=== PATIENT | male | born 1990 | race African-American/Black ===

== ENCOUNTER 2016-12-08 13:29 | Emergency (ER) ==
[2016-12-08 13:48] VITALS: BP 151/97
--- NOTE | 2016-12-08 14:14 | PROVIDER DOCUMENTATION ---
HPI-General Adult - General Source: patient - History of Present Illness -Gen Adult Nature of Presenting Problems: patient is a 26 y/o M that presents to the ER requesting Predisone for his MS. pt has been off his steroids for a few months. He reports going to [facility] a few times to get Predisone. He has no neurological f/u. Denies any symptoms. Location of Pain/Injury: reports: none Pain Radiation: reports: no radiation Quality of Pain: reports: none Severity: reports: mild Onset/Duration: reports: unsure Timing: reports: still present Context/Activities at Onset: reports: other (out of meds) Modifying Factors: improves with: nothing Associated Symptoms: reports: denies symptoms Similar Symptoms Previously?: Yes Recently seen or treated by another doctor?: No <Kingston Lion - Last Filed: 12/08/16 14:19> <Silas Black - Last Filed: 12/08/16 14:57> - General Chief Complaint: Request RX Stated Complaint: REQUEST RX Time Seen by Provider: 12/08/16 14:02 Allergies/Adverse Reactions: Patient Allergies Allergy/AdvReac Type Severity Reaction Status Date / Time No Known Allergies Allergy Verified 09/07/16 08:26 Home Medications: Prednisone 20 mg PO DAILY 12/08/16 Review of Systems - Adult - REVIEW OF SYSTEMS - ADULT Constitutional: denies: chills, fever Eyes: reports: no symptoms reported Ears, Nose, Mouth & Throat: denies: sinus problem, throat pain Cardiovascular: reports: no symptoms reported Respiratory: reports: no symptoms reported Gastrointestinal: reports: no symptoms reported Genitourinary: reports: no symptoms reported Musculoskeletal: reports: no symptoms reported Integumentary: reports: no symptoms reported Neurological: reports: no symptoms reported Psychiatric: reports: no symptoms reported Endocrine: reports: no symptoms reported Hematologic/Lymphatic: reports: no symptoms reported Allergic/Immunologic: reports: no symptoms reported All Other Systems: Reviewed and Negative <Kingston Lion - Last Filed: 12/08/16 14:19> Past History - Adult - PAST MEDICAL HISTORY-ADULT Review of Records: reports: Old Records Reviewed, Nursing Assessment Review, Medications Reviewed Neurological: reports: Multiple Sclerosis - PRIOR SURGERIES/PROCEDURES Surgical/Procedure History: reports: other (amputation of 1,2,3rd, 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 [employer] accident several years ago with 4th digit later reattatched) - IMMUNIZATION STATUS Childhood Immunizations: UTD Flu Vaccine: See Nurse Assessment - FAMILY HISTORY Family History: reviewed, not pertinent - SOCIAL HISTORY Smoking: quit greater than 1 year, cigarettes Alcohol Use Frequency: occasionally Living Situation: family <Kingston Lion - Last Filed: 12/08/16 14:19> Physical Exam-General - PHYSICAL EXAM-ADULT Initial Vital Signs Reviewed: Yes - CONSTITUTIONAL General Appearance: alert, no apparent distress - EYES Eyes: PERRL/EOMI, pink conjunctivae - HEAD, EARS, NOSE, MOUTH & THROAT HENMT: normocephalic/atraumatic, moist mucous membranes, normal ENT inspection - NECK Neck: non-tender, full range of motion, normal inspection - RESPIRATORY Respiratory: lungs clear, normal breath sounds, no respiratory distress, no accessory muscle use - CARDIOVASCULAR Cardiovascular: regular rate, rhythm, no edema, no murmur - GASTROINTESTINAL (ABDOMEN) Abdominal Exam: normal bowel sounds, non tender, soft, no organomegaly, no pulsatile mass - MUSCULOSKELETAL Extremity: no pedal edema, no calf tenderness, normal capillary refill, pelvis stable - SKIN Integumentary: normal color, warm/dry - PSYCHIATRIC Psych/Mental Status: normal mood/affect, normal thought content, normal thought process, oriented x 3 <Kingston Lion - Last Filed: 12/08/16 14:19> Progress - PLAN OF CARE/RESULTS Progress/Plan/Lab Results: Vital Signs Temp Pulse Resp BP Pulse Ox 12/08/16 13:41 99.5 F 76 20 151/97 99 No Known Allergies Allergy (Verified 09/07/16 08:26) Gabapentin [Neurontin] 400 mg PO TID #90 capsule 09/07/16 Prednisone 20 mg PO DAILY 12/08/16 pt will be given referral to and will have social human services assistants f/u with him to help him out. patient was clinically stable and understood instructions <Kingston Lion - Last Filed: 12/08/16 14:19> - PLAN OF CARE/RESULTS Progress/Plan/Lab Results: service desk team lead helped pt signed Medicare per ER charge nurse, and we referred him to see Dr. Cruz - [facility]. Pt has not been taking any meds for his MS since 2 months ago and has never been seen by a Neurologist. I explained to him, randomly taking Predispose could do harm for his MS. Pt understood that he needs a PCP and a specialist. <Silas Black - Last Filed: 12/08/16 14:57> Departure - Departure Time of Disposition Order: 14:25 Certified Medical Emergency: Emergent <Kingston Lion - Last Filed: 12/08/16 14:19> <Silas Black - Last Filed: 12/08/16 14:57> - Departure DIAGNOSIS: Medication requested Disposition: HOME 01 Condition: Stable Additional Instructions: ED Follow Up Instructions: You have been treated by a care provider in the Emergency Department. These instructions are being provided to you so you can have an understanding of how to care for yourself upon discharge. Upon discharge from the Emergency Department, you are responsible for making arrangements for follow-up care by a physician of your choice. Take all prescribed medications as directed. Return to the Emergency Department immediately for any new or worsening symptoms. You may call the Physician Referral phone number at [phone] to obtain a list of Physicians who are taking new patients. Referrals: None,PCP [Primary Care Provider] - Garth Ziegler MD [STAFF PHYSICIAN] - (call for f/u) Attestation - Scribe Verification/Attestation Scribe:: Kingston Lion Acting as Scribe for:: Silas Black Scribe documention review:: This chart was documented by a scribe and accurately reflects the service the provider performed and the decisions made by the provider. <Kingston Lion - Last Filed: 12/08/16 14:19> Physician Attestation - Physician Attestation I, the provider, attest to the following statement:: Silas Black Physician documentation Attestation:: This documentation recorded by the scribe accurately reflects the service I personally performed and the decisions made by me. <Kingston Lion - Last Filed: 12/08/16 14:19>
== END 2016-12-08 14:50 | disposition home or self-care (01) ==
LOC: P.ED 13:29
DX: Z76.0 Encounter for issue of repeat prescription (principal); G35 Multiple sclerosis; Z79.52 Long term (current) use of systemic steroids; Z89.422 Acquired absence of other left toe(s); Z87.891 Personal history of nicotine dependence
CPT/HCPCS: 99281